=== PATIENT | female | born 1995 | race Caucasian/White ===

== ENCOUNTER 2017-03-15 10:36 | Emergency (ER) | payer OTHER ==
[2017-03-15 10:49] VITALS: BP 146/94; PULSE 112; RESP 18; TEMP 99.1
[2017-03-15] MEDS ORDERED: ACETAMINOPHEN TAB 500 MG TAB PO STA (10:58)
--- NOTE | 2017-03-15 11:13 | ED ---
General Adult HPI - General Chief complaint: Animal Bite Stated complaint: Dog Bite Time Seen by Provider: 03/15/17 10:46 Source: patient, family, EMS, RN notes reviewed Mode of arrival: EMS Limitations: no limitations - History of Present Illness Initial comments: Chief complaint history of present illness is a 21-year-old female who was walking her dog at the dog park in for depression and an aggressive dog and started biting her dog. She was trying to rescue her dog when she was bit in her left hand. The states she does not know if it was the aggressive dog or one of her own dogs bit her on the wrist. Was established that the dog that bit her dog did not have his rabies shots. The Cold Storage Worker's department responded to the scene. - Related Data Home Medications Medication Instructions Recorded Confirmed [place] Control 1 tab PO DAILY 03/15/17 03/15/17 Previous Rx's Medication Instructions Recorded Ciprofloxacin HCl [Cipro] 500 mg PO Q12HR #14 tablet 03/15/17 Clindamycin HCl 300 mg PO QID #21 cap 03/15/17 Hydrocodone/Acetaminophen [[place] 1 each PO Q6HR PRN #10 tab 03/15/17 5-325] Allergies Allergy/AdvReac Type Severity Reaction Status Date / Time amoxicillin Allergy Unknown Verified 03/15/17 10:53 Childhood Review of Systems ROS Statement: Those systems with pertinent positive or pertinent negative responses have been documented in the HPI. Review of systems. No complaints other than puncture wounds on the left hand. Patient has discomfort with opening and closing. Neurovascular status is intact. The patient is right-hand dominant. Patient's last tetanus shot was greater than 5 years ago. Patient denies any past medical problems or medications she takes her control pills patient surgeries tonsils and adenoids. Family history includes cancers of the thyroid, vagina, brain and breast. Patient had a child had an upset stomach with amoxicillin but no other reaction per father is at bedside. Patient does not smoke doesn't drink alcohol. ROS Other: All systems not noted in ROS Statement are negative. Past Medical History Past Medical History: No Reported History History of Any Multi-Drug Resistant Organisms: None Reported Past Surgical History: Adenoidectomy, Tonsillectomy Past Psychological History: No Psychological Hx Reported Smoking Status: Never smoker Past Alcohol Use History: None Reported Past Drug Use History: None Reported General Exam - General Exam Comments Initial Comments: General: The patient is awake and alert, in no distress, and does not appear acutely ill. All bite wound left hand. Vital signs temperature 90.9 pulse 112 respiratory rate 18 pulse ox on percent room air blood pressure 146/94 Musculoskeletal: Multiple extremity is normal except for 2 dog bites to the nondominant left hand and one deep abrasion on the more proximal forearm left side. Full range of motion neurovascular status intact. X-ray pending. Neurological: No complaint of any neuro deficits. Limitations: no limitations Course Vital Signs 03/15/17 10:47 Temperature 99.1 F Pulse Rate 112 H Respiratory 18 Rate Blood Pressure 146/94 O2 Sat by Pulse 100 Oximetry Procedures - Procedures Initial comment: Procedure; using sterile technique 1% Xylocaine was used to numb 2 small lacerations one on the dorsal surface of her left hand and the other on the center eminence. The wound was then numbed with 1% Xylocaine. Rinsed well with normal saline Betadine and finally normal saline again. Wound edges approximated with only one suture of a mattress style 4-0 nylon. Patient will have the sutures removed in 7 days. Or earlier should be signs of infection Patient was told if he gets red tender or infected that suture needs to be removed. She was also started on clindamycin and Cipro while in emergency room. Patient has an ALLERGY to amoxicillin. Dr. Angulo Medical Decision Making - Medical Decision Making Adelso decision-making. I contacted the animal control office. And because the coal tower operator of the dog that may have bitten this patient is not wanted, her dog will be euthanized. The testing for rabies will be sent to the state and the results will be back in 5 days. The animal control manufacturer representative told me they will contact my patient. The wound was cleaned and anesthetized one suture placed. Patient states she has now to amoxicillin. She'll be placed on clindamycin 300 4 times a day Cipro 500 twice a day for 1 week. X-ray of the left hand was done and reviewed by radiologist his impression is there is no acute fracture, dislocation evident. The joint spaces appear within normal limits. The overlying soft tissue appears unremarkable. Impression; there is no acute fracture or dislocation. As read by Dr. Jonas Disposition Clinical Impression: Dog bite, Laceration of left hand Disposition: HOME SELF-CARE Condition: Fair Instructions: Animal Bite (ED), Laceration (ED) Additional Instructions: Use cold compresses see her hand control swelling. Use ibuprofen for discomfort. Take clindamycin 300 mg 4 times daily for 7 days and Cipro 500 mg twice daily for 7 days. Call animal control on Monday if you have not heard from them concerning the health of the dog in question. If there are signs of infection such as pain, redness and discharge. Return emergency room to have the sutures removed earlier than 7 days. Prescriptions: Ciprofloxacin HCl [Cipro] 500 mg PO Q12HR #14 tablet Clindamycin HCl 300 mg PO QID #21 cap Hydrocodone/Acetaminophen [[place] 5-325] 1 each PO Q6HR PRN #10 tab PRN Reason: Pain Time of Disposition: 11:59
[2017-03-15] MEDS ORDERED: DIPH,PERTUS(ACELL)TETVAC-LF 0.5 ML VIAL IM ONE (11:19)
[2017-03-15] MEDS ORDERED: CLINDAMYCIN 150 MG CAP PO STA (11:38)
[2017-03-15] MEDS ORDERED: CIPROFLOXACIN HCL 500 MG TAB PO STA (11:39)
[2017-03-15] MEDS ORDERED: HYDROcodone/APAP 5-325MG 1 EACH TAB PO STA (11:39)
--- NOTE | 2017-03-15 11:50 | XR ---
EXAMINATION TYPE: XR hand complete LT DATE OF EXAM: 03/15/2017 11:41 AM CLINICAL HISTORY: pain TECHNIQUE: Frontal, lateral and oblique images of the left hand are obtained. COMPARISON: None. FINDINGS: There is no acute fracture/dislocation evident. The joint spaces appear within normal limi ts. The overlying soft tissue appears unremarkable. IMPRESSION: There is no acute fracture or dislocation. ICD 10 NO FRACTURE, INITIAL EVALUATION
--- NOTE | 2017-05-08 07:09 | CDI ---
Documentation Clarification OP Dear avi Angulo MD, Please do addendum to ED report that describes the length of laceration repair that has been performed in hand. Thank you, sharron wood undergraduate intern. if you have any questions,please contact assistant branch operations manager at [phone]. [facility]
== END 2017-03-15 12:10 | disposition home or self-care (01) ==
LOC: EC 10:36
DX: S61.412A Laceration without foreign body of left hand, initial encounter (principal); Z23 Encounter for immunization; Z79.3 Long term (current) use of hormonal contraceptives; Z88.0 Allergy status to penicillin; W54.0XXA Bitten by dog, initial encounter; Y93.K1 Activity, walking an animal; Y92.89 Other specified places as the place of occurrence of the external cause
CPT/HCPCS: 12001; 90471; 90715; 99283

== ENCOUNTER 2022-01-04 09:39 | Outpatient (CLI) | payer BC ==
[2022-01-04 11:52] VITALS: BP 116/55; PULSE 115; RESP 14; TEMP 97.3
--- NOTE | 2022-03-02 21:53 | P.MSEPDOC ---
Presenting Problems - Arrival Data Date of Arrival on Unit: 01/04/22 Time of Arrival on Unit: 09:50 Mode of Transport: Ambulatory - Complaint OB-Reason for Admission/Chief Complaint: Rule Out SROM Comment: pt reports contractions since 4 am Medical History - Information : 1 Para: 0 Term: 0 : 0 Abortions: Spontaneous or Elective: 0 Number of Living Children: 0 - Gestational Age Gestational Age by SEJAL (wks/days): 37 Weeks and 4 Days Review of Systems - Review of Systems Constitutional: No problems Breast: No problems ENT: No problems Cardiovascular: No problems Respiratory: No problems Gastrointestinal: No problems Genitourinary: No problems Musculoskeletal: No problems Neurological: No problems Skin: No problems Vital Signs - Temperature Temperature: 97.3 F Temperature Source: Oral - Pulse Brachial Pulse Rate: 115 Pulse Assessment Method: Automatic Cuff - Respirations Respiratory Rate: 14 Oxygen Delivery Method: Room Air - Blood Pressure Right Arm Blood Pressure: 116/55 Blood Pressure Mean: 75 Blood Pressure Source: Automatic Cuff Medical Screen Scoring - Cervical Exam Dilation (cm): 1 Effacement (%): 50 Station: -2 Membranes: Intact - Uterine Contractions Frequency From (mins): 5 Frequency To (mins): 10 Duration From (seconds): 30 Duration To (seconds): 40 Intensity: Mild Resting: Soft to palpation - Assessment - Baby A Baseline FHR: 145 Heart Rate - NICHD Category: Category I (Normal) NST: Reactive Physician Notification - Physician Notified Physician Notified Date: 01/04/22 Physician Notified Time: 11:35 Physician: Devan Dutton Order Received: Yes - Notification Comment Comment: reported to pt visit to triage, with reactive strip, irregular contraction and no cervical change Maternal Triage Index - Maternal Triage Index Presenting for scheduled procedure w/no complaint: No - Stat/Priority 1 Stat Priority 1: No - Urgent/Priority 2 Urgent Priority 2: No - Prompt/Priority 3 Prompt Priority 3: No - Non-Urgent/Priority 4 Non-Urgent Priority 4: Yes Criteria Met for Priority 4: reports contactions since 4 am Disposition - Disposition OB Disposition: Discharge to home Discharge Date: 01/04/22 Discharge Time: 11:30 I agree with the RN Medical Screening Exam: Yes Case reviewed; plan agreed upon as documented in EMR&OBIX.: Yes Diagnosis: FALSE LABOR AT OR AFTER 37 COMPLETED WEEKS OF GESTATION
== END 2022-01-04 11:30 | disposition home or self-care (01) ==
LOC: FBPOP 09:39
PROVIDERS: ATTEND Obstetrics & Gynecology Obstetrics
DX: O47.1 False labor at or after 37 completed weeks of gestation (principal); Z3A.37 37 weeks gestation of pregnancy; Z88.1 Allergy status to other antibiotic agents
CPT/HCPCS: 59025; 99213

== ENCOUNTER 2022-01-06 13:37 | Inpatient (IN) | payer BC ==
[2022-01-06] MEDS ORDERED: TERBUTALINE 1 MG/ML VIAL SQ PRN (14:16)
[2022-01-06] MEDS ORDERED: METHYLERGONOVINE 0.2 MG/ML 1 ML AMP IM PRN (14:16)
[2022-01-06] MEDS ORDERED: LIDOCAINE 1% (PF) 10 MG/ML (30 ML SDV) SQ PRN (14:16)
[2022-01-06] MEDS ORDERED: OXYTOCIN 10 UNIT/ML 1 ML VIAL IM PRN (14:16)
[2022-01-06] MEDS ORDERED: CARBOPROST TROMETHAMINE 250 MCG/ML 1 ML AMP IM PRN (14:16)
[2022-01-06] MEDS: LACTATED RINGERS 1,000 ML IV SCH ×2 (14:25→15:11)
[2022-01-06 14:34] VITALS: RESP 16
[2022-01-06 14:45] LABS: Basophils % (A) 0 %; Eosinophils # (A) 0.1 k/uL (0-0.7); Eosinophils % (A) 1 %; HCT 37.9 % (34.0-46.0); HGB 12.4 gm/dL (11.4-16.0); Hypochromasia Slight; Lymphocytes # (A) 2.3 k/uL (1.0-4.8); Lymphocytes % (A) 25 %; MCH 27.6 pg (25.0-35.0); MCHC 32.7 g/dL (31.0-37.0); MCV 84.5 fL (80.0-100.0); Mean Platelet Volume 10.8; Monocytes # (A) 0.7 k/uL (0-1.0); Monocytes % (A) 7 %; Neutrophils # (A) 5.9 k/uL (1.3-7.7); Neutrophils % (A) 65 %; Platelet Count 206 k/uL (150-450); RBC 4.49 m/uL (3.80-5.40); RDW 14.2 % (11.5-15.5); WBC 9.1 k/uL (3.8-10.6)
[2022-01-06] MEDS ORDERED: ROPIVACAINE 5MG/ML 20ML VIAL ONE (14:55)
[2022-01-06] MEDS ORDERED: fentaNYL (PF) 50 MCG/ML 5 ML AMP ONE (14:55)
[2022-01-06] MEDS ORDERED: SODIUM CHLORIDE 0.9% 100 ML BAG ONE (14:55)
--- NOTE | 2022-01-06 16:40 | P.HPOB ---
History of Present Illness H&P Date: 01/06/22 Chief Complaint: IUP @ 37 5/7 weeks, SROM This is a 26-year-old 1 para 0 at 37-5/7 weeks that presents to labor and delivery with complaints of spontaneous rupture of membranes around 12:30. Patient states it was a large gush of clear fluid. Patient has been tarun throughout the week approximately every 10-11 minutes, no cervical change was appreciated on a prior visit to triage. Patient has noted good movement. On bloodwork should a blood type of O-, rubella status immune, hepatitis B surface antigen negative, HIV negative, RPR nonreactive, group beta strep cultures negative. Review of Systems Constitutional: Denies chills, Denies fatigue, Denies fever Ears, nose, mouth and throat: Denies headache Cardiovascular: Reports leg edema Gastrointestinal: Denies constipation, Denies diarrhea, Denies nausea, Denies vomiting Genitourinary: Reports Past Medical History Past Medical History: No Reported History History of Any Multi-Drug Resistant Organisms: None Reported Past Surgical History: Adenoidectomy, Tonsillectomy Past Anesthesia/Blood Transfusion Reactions: No Reported Reaction Past Psychological History: No Psychological Hx Reported Smoking Status: Never smoker Past Alcohol Use History: None Reported Past Drug Use History: None Reported - Past Family History Mother Family Medical History: No Reported History Medications and Allergies Home Medications Medication Instructions Recorded Confirmed Type Pnv,Calcium 72/Iron/Folic Acid 1 tablet PO DAILY 01/04/22 01/06/22 History [ Plus Tablet] Sertraline HCl [Zoloft] 75 mg PO DAILY 01/04/22 01/06/22 History buPROPion [Wellbutrin] 1 tab PO DAILY 01/04/22 01/06/22 History Allergies Allergy/AdvReac Type Severity Reaction Status Date / Time amoxicillin Allergy Unknown Verified 01/06/22 13:49 Childhood Exam Osteopathic Statement: *. No significant issues noted on an osteopathic structural exam other than those noted in the History and Physical/Consult. 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 heart tones are noted to be category 1, she is tarun irregularly. Cervical exam is deferred. She was noted to be 6 cm/100/-1 on last exam after epidural per RN. Results Result Diagrams: 01/06/22 14:20 Assessment and Plan (1) 37 weeks gestation of Current Visit: Yes Status: Acute Code(s): Z3A.37 - 37 WEEKS GESTATION OF SNOMED Code(s): 91949047 (2) SROM (spontaneous rupture of membranes) Current Visit: Yes Status: Acute Code(s): MZC8519 - SNOMED Code(s): 552039999 Plan: 26-year-old 1 para 0 at 37-5/7 weeks that presents with complaints of spontaneous rupture of membranes around 12:30. Patient has been tarun irregularly throughout the week. Noted to be 2 cm in the office previously. Patient was noted to be 4 cm upon admission. Patient did desire epidural, this was placed without difficulty by the anesthesia department. Patient is declini ng Pitocin augmentation of labor despite irregular contractions.
[2022-01-06] MEDS ORDERED: OXYTOCIN 30 UNITS/500 ML NS 30 UNIT in SALINE 1 500ML.BAG IV SCH ×2 (17:45→22:15)
[2022-01-06] MEDS ORDERED: CITRIC ACID-SODIUM CITRATE 15 ML CUP PO ONE (21:00)
[2022-01-06] MEDS ORDERED: OXYTOCIN 30 UNITS/500 ML NS BAG IV ONE (21:05)
[2022-01-06] MEDS ORDERED: MIDAZOLAM 2 MG/2 ML VIAL ONE (21:05)
[2022-01-06] MEDS ORDERED: fentaNYL (PF) 50 MCG/ML 2 ML AMP ONE (21:05)
[2022-01-06] MEDS ORDERED: MORPHINE SULFATE (PF) 0.3 MG/0.3 ML SYR ONE (21:05)
[2022-01-06] MEDS ORDERED: ONDANSETRON 4 MG/2 ML VIAL ONE (21:05)
--- NOTE | 2022-01-06 21:55 | P.OP ---
Date of Procedure: 01/06/22 Preoperative Diagnosis: IUP at 37 and 5, spontaneous rupture of membranes, arrest of descent Postoperative Diagnosis: Same Anesthesia: epidural Surgeon: Soniya Topete Deblocker #1: Dali Menchaca Estimated Blood Loss (ml): 400 IV fluids (ml): 800 Urine output (ml): 50 Pathology: none sent Condition: stable Disposition: observation Indications for Procedure: 26-year-old at 37-6/7 weeks that presented to labor and delivery with complaints of spontaneous rupture of membranes around 12:30. Patient noted a large gush of clear fluid. Patient presented to the hospital was noted to be 4 cm and. Uncomfortable. Patient was admitted to labor and delivery. Patient did request epidural placement. Epidural was placed without difficulty by the anesthesia department. Patient made slow progress but eventually became complete. Patient began pushing and after an hour and a half no descent was appreciated. was noted with increased caput formation in addition. heart tones were noted to be reassuring throughout labor, pushing. Operative Findings: Viable female in occiput posterior presentation, weight of 6 pounds 14.2 ounces, Apgars of 4, 7, 8 at one, 5, 10 minutes respectively. time of 2117. Normal uterus tubes and ovaries were appreciated. Description of Procedure: Patient was taken back to the operative suite where epidural anesthesia was found be adequate. She was prepped and draped in normal sterile fashion in the dorsal supine position. A Pfannenstiel skin incision was made with the scalpel and carried through the underlying layer of fascia. The fascia was then incised in the midline and the incision was extended laterally. Superior aspect of the fascial incision was then grasped santana clamps, elevated and underlying rectus muscle was dissected off sharply. The inferior aspect the fascial incision was then grasped santana clamps, elevated and underlying rectus muscles dissected off sharply. Rectus muscles were in the midline the peritoneum was identified and entered. The bladder blade was then inserted into the pelvis. The vesicouterine peritoneum was identified and the bladder flap was created using sharp and blunt dissection. Hysterotomy incision was performed with the scalpel, meconium-stained fluid was appreciated. The infant was noted to be low in the pelvis, the delivery nurse placed her hand vaginally to push up on the head, the infant was encountered in occiput posterior presentation loose nuchal cord 1 was delivered in the usual fashion. The umbilical cord was doubl y clamped and cut was handed off to awaiting RN. Cord blood was then taken. The placenta was delivered manually and the uterus was cleared of all clots and debris. The uterus was delivered from the abdomen. The hysterotomy incision was inspected extension of the hysterotomy incision was noted on the left lateral uterine wall. The apex was grasped with an Allis clamps, the hysterotomy incision was closed with 0 Vicryl in a running locked fashion. A second imbricating suture was performed. Hemostasis was appreciated after closure. The pelvis was then copiously irrigated. The bladder was inspected and found to be intact and away from the uterine incision. The uterus was then delivered from the abdomen. The gutters were cleared of all clots and debris. Hysterotomy incision was inspected and found to be hemostatic once again. The peritoneum was then loosely reapproximated. The rectus muscles were inspected found to be hemostatic. The fascia was then closed with 0 Vicryl in a running fashion from one lateral edge the midline and the other lateral edge the midline. The subcutaneous tissue was then irrigated found to be hemostatic and closed with 3-0 Vicryl in a running fashion. The skin was then closed with 4-0 Vicryl in a subcuticular fashion. Steri-Strips and sterile dressings were applied. All counts were noted be correct 2. Patient tolerated delivery well, was taken to special care nursery for observation.
[2022-01-06] MEDS ORDERED: diphenhydrAMINE 50 MG CAP PO PRN (22:15)
[2022-01-06] MEDS ORDERED: diphenhydrAMINE 25 MG CAP PO PRN (22:15)
[2022-01-06] MEDS ORDERED: diphenhydrAMINE 50 MG/ML 1 ML VIAL IVP PRN ×2 (22:15)
[2022-01-06] MEDS ORDERED: ONDANSETRON 4 MG/2 ML VIAL IVP PRN (22:15)
[2022-01-06] MEDS ORDERED: NALOXONE 0.4 MG/ML 1 ML VIAL IV PRN (22:15)
[2022-01-06] MEDS ORDERED: ZOLPIDEM 5 MG TAB PO PRN (22:15)
[2022-01-06] MEDS ORDERED: METOCLOPRAMIDE 5 MG/ML 2 ML VIAL IVP PRN (22:15)
[2022-01-07] MEDS: ACETAMINOPHEN IV (For NPO) 1,000 MG in EMPTY BAG 1 BAG IVPB SCH ×2 (00:02→08:31)
[2022-01-07] MEDS: ACETAMINOPHEN TAB 500 MG TAB PO SCH ×4 (00:08→19:18)
[2022-01-07] MEDS: LACTATED RINGERS 1,000 ML IV SCH ×4 (01:36→08:45)
[2022-01-07] MEDS ORDERED: Rhogam IMMUNE GLOBULIN 1,500 UNIT/1 ML IM ONE (03:41)
[2022-01-07] MEDS: IBUPROFEN IV 800 MG in SODIUM CHLORIDE 0.9% 250 ML IV SCH ×3 (03:42→11:02)
[2022-01-07] MEDS: IBUPROFEN 600 MG TAB PO SCH ×5 (04:27→22:32)
[2022-01-07] MEDS ORDERED: ROPIVACAINE 100 MG, fentaNYL (PF). 200 MCG in SODIUM CHLORIDE 0.9% 76 ML EPIDURAL ONE (06:30)
[2022-01-07 06:59] LABS: Basophils % (A) 0 %; Eosinophils % (A) 0 %; HCT 32.9 % (34.0-46.0); HGB 10.7 gm/dL (11.4-16.0); Hypochromasia Slight; Lymphocytes # (A) 1.1 k/uL (1.0-4.8); Lymphocytes % (A) 9 %; MCHC 32.6 g/dL (31.0-37.0); MCV 85.9 fL (80.0-100.0); Mean Platelet Volume 10.3; Monocytes # (A) 0.5 k/uL (0-1.0); Monocytes % (A) 4 %; Neutrophils # (A) 10.8 k/uL (1.3-7.7); Neutrophils % (A) 86 %; Platelet Count 128 k/uL (150-450); RBC 3.83 m/uL (3.80-5.40); RDW 14.5 % (11.5-15.5); WBC 12.5 k/uL (3.8-10.6)
[2022-01-07] MEDS: SENNOSIDES-DOCUSATE SODIUM 1 EACH TAB PO SCH ×2 (08:32→21:00)
[2022-01-07] MEDS: SERTRALINE 25 MG TAB PO SCH (08:32)
[2022-01-07] MEDS ORDERED: buPROPion XL 300 MG TAB.ER.24H PO STA (08:35)
--- NOTE | 2022-01-07 08:51 | P.PNOBGPC ---
Subjective - Subjective Principal diagnosis: Day 1, primary Interval history: Patient did well overnight. She is ambulating and voiding without difficulty. Her pain is controlled, lochia is minimal. She is tolerating a regular diet without nausea or vomiting. Patient reports: Reports appetite normal, Reports voiding normally, Reports pain well controlled, Reports ambulating normally [place]: doing well (In the nursery on high flow oxygen) Objective - Vital Signs Latest vital signs: Vital Signs Temp Pulse Resp BP Pulse Ox 01/07/22 03:52 98.8 F 96 16 113/75 99 01/07/22 00:00 98.9 F 76 16 142/89 99 01/06/22 23:30 76 16 135/85 99 01/06/22 23:00 83 16 139/85 96 01/06/22 22:45 83 16 140/85 98 01/06/22 22:30 92 16 127/86 100 01/06/22 22:15 108 H 16 130/82 100 01/06/22 22:00 99.1 F 100 16 109/71 99 01/06/22 14:37 96.5 F L 93 16 139/93 01/06/22 14:30 96.5 F L 93 16 139/93 99 Intake and Output 01/06/22 01/07/22 01/07/22 22:59 06:59 14:59 Intake Total 800 Output Total 450 1900 Balance 350 -1900 Intake: IV 800 Output: Urine 50 1800 Uretheral ([place]) 600 Estimated Blood Loss 400 Output, Quantitative 100 Blood Loss Other: Voiding Method Indwelling Catheter Indwelling Catheter - Exam Extremities: Present: normal, edema Abdomen: Present: normal appearance Incision: Present: normal, dry, intact Uterus: Present: normal, firm - Labs Labs: Abnormal Lab Results - Last 24 Hours (Table) 01/07/22 Range/Units 06:41 WBC 12.5 H (3.8-10.6) k/uL Hgb 10.7 L (11.4-16.0) gm/dL Hct 32.9 L (34.0-46.0) % Plt Count 128 L (150-450) k/uL Neutrophils # 10.8 H (1.3-7.7) k/uL Assessment and Plan (1) 37 weeks gestation of Current Visit: Yes Status: Acute Code(s): Z3A.37 - 37 WEEKS GESTATION OF SNOMED Code(s): 53540627 (2) SROM (spontaneous rupture of membranes) Current Visit: Yes Status: Acute Code(s): HRY1158 - SNOMED Code(s): 770043704 (3) Arrest of descent, delivered, current hospitalization Current Visit: Yes Status: Acute Code(s): O62.1 - SECONDARY UTERINE INERTIA SNOMED Code(s): 23585839 (4) S/P section Current Visit: Yes Status: Acute Code(s): Z98.891 - HISTORY OF UTERINE SCAR FROM PREVIOUS SURGERY SNOMED Code(s): 857873760 Plan: 26-year-old 1 now para 1 status post primary for arrest of descent. Patient is doing well postoperatively. We will encourage increased ambulation today. remains in special care nursery on high flow oxygen, meconium-stained fluid was noted after delivery. Plan to continue routine postoperative care.
[2022-01-07] MEDS ORDERED: buPROPion 100 MG TAB PO SCH (09:00)
--- NOTE | 2022-01-07 09:01 | P.PN ---
Progress Note - Text 01/07/22 646 26-year-old female status post . Patient had an epidural catheter and received Duramorph after the procedure, she has a VAS of 4 with complaints of pruritus which should subside by the end of the day
[2022-01-07] MEDS: PRENATAL VIT-IRON-FOLIC ACID 1 EACH CAP PO SCH (10:57)
[2022-01-07] MEDS: SIMETHICONE 80 MG CHEWABLE PO PRN ×2 (14:04→21:00)
[2022-01-08] MEDS: IBUPROFEN 600 MG TAB PO SCH ×3 (05:45→23:36)
--- NOTE | 2022-01-08 07:47 | P.PN ---
Subjective Progress Note Date: 01/08/22 Principal diagnosis: Doing well postoperative day number two Positive flatus. Minimal pain. Minimal to moderate lochia rubra. No complaints Objective - Vital Signs Vital signs: Vital Signs Temp 98.0 F 01/08/22 00:00 Pulse 90 01/08/22 00:00 Resp 16 01/08/22 00:00 BP 118/64 01/08/22 00:00 Pulse Ox 100 01/08/22 00:00 Intake & Output 01/07/22 01/08/22 01/08/22 18:59 06:59 18:59 Output Total 1050 Balance -1050 Output: Urine 1050 Other: # Voids 2 2 - Constitutional General appearance: Present: average body habitus, cooperative - EENT Eyes: Present: PERRLA ENT: Present: hearing grossly normal - Neck Thyroid: bilateral: normal size - Respiratory Respiratory: bilateral: CTA - Cardiovascular Rhythm: regular - Gastrointestinal General gastrointestinal: Present: normal bowel sounds - Genitourinary Genitourinary Comment(s): Incision clean and dry, intact, Steri-Strips applied. - Integumentary Integumentary: Present: normal - Neurologic Neurologic: Present: CNII-XII intact - Musculoskeletal Musculoskeletal: Present: gait normal - Psychiatric Psychiatric: Present: A&O x's 3, appropriate affect, intact judgment & insight - Labs CBC & Chem 7: 01/07/22 06:41 Assessment and Plan Assessment: Doing well second postoperative day. Plan: Continue postoperative care. Possible discharge home tomorrow. Time with Patient: Less than 30
[2022-01-08] MEDS: SERTRALINE 25 MG TAB PO SCH (08:34)
[2022-01-08] MEDS: SENNOSIDES-DOCUSATE SODIUM 1 EACH TAB PO SCH ×2 (08:35→19:19)
[2022-01-08] MEDS: buPROPion XL 300 MG TAB.ER.24H PO SCH (08:35)
[2022-01-08] MEDS: PRENATAL VIT-IRON-FOLIC ACID 1 EACH CAP PO SCH (08:36)
[2022-01-08] MEDS: ACETAMINOPHEN TAB 500 MG TAB PO SCH ×3 (08:52→16:16)
[2022-01-09] MEDS: SENNOSIDES-DOCUSATE SODIUM 1 EACH TAB PO SCH ×2 (07:42→19:50)
[2022-01-09] MEDS: PRENATAL VIT-IRON-FOLIC ACID 1 EACH CAP PO SCH (07:43)
[2022-01-09] MEDS: SERTRALINE 25 MG TAB PO SCH (07:44)
[2022-01-09] MEDS: buPROPion XL 300 MG TAB.ER.24H PO SCH (07:44)
--- NOTE | 2022-01-09 10:16 | P.PN ---
Subjective Progress Note Date: 01/09/22 Principal diagnosis: Doing well postoperative day number two Slept well. No complaints. [place] infant is still in the nursery. Objective - Vital Signs Vital signs: Vital Signs Temp 98.0 F 01/09/22 08:00 Pulse 107 H 01/09/22 08:00 Resp 16 01/09/22 08:00 BP 136/78 01/09/22 08:00 Pulse Ox 99 01/09/22 08:00 Intake & Output 01/08/22 01/09/22 01/09/22 18:59 06:59 18:59 Other: # Voids 2 2 1 # Bowel Movements 1 - Constitutional General appearance: Present: average body habitus, cooperative - EENT Eyes: Present: PERRLA ENT: Present: hearing grossly normal - Neck Neck: Present: normal ROM - Respiratory Respiratory: bilateral: CTA - Cardiovascular Rhythm: regular - Gastrointestinal General gastrointestinal: Present: normal bowel sounds - Integumentary Integumentary Comment(s): Incision clean and dry, intact, Steri-Strips applied. Fundus firm, midline, sy mmetric, 18 week size. Integumentary: Present: normal - Neurologic Neurologic: Present: CNII-XII intact - Musculoskeletal Musculoskeletal: Present: strength equal bilaterally - Psychiatric Psychiatric: Present: A&O x's 3, appropriate affect, intact judgment & insight - Labs CBC & Chem 7: 01/07/22 06:41 Assessment and Plan Plan: Continue postoperative care. Patient wishes to stay until tomorrow as infant is not being discharged today. Time with Patient: Less than 30
[2022-01-09] MEDS: IBUPROFEN 600 MG TAB PO SCH ×3 (12:57→22:58)
[2022-01-09] MEDS: ACETAMINOPHEN TAB 500 MG TAB PO SCH (22:57)
[2022-01-10 00:56] VITALS: BP 100/59; TEMP 98.6
[2022-01-10] MEDS: ACETAMINOPHEN TAB 500 MG TAB PO SCH (04:28)
[2022-01-10 07:31] VITALS: PULSE 90
[2022-01-10] MEDS: IBUPROFEN 600 MG TAB PO SCH ×2 (09:04)
[2022-01-10] MEDS: SENNOSIDES-DOCUSATE SODIUM 1 EACH TAB PO SCH (09:04)
--- NOTE | 2022-01-10 09:13 | P.DS ---
Providers Date of admission: 01/06/22 13:53 Expected date of discharge: 01/10/22 Attending physician: Soniya Topete Primary care physician: Stated None - Discharge Diagnosis(es) (1) 37 weeks gestation of Current Visit: Yes Status: Acute (2) Arrest of descent, delivered, current hospitalization Current Visit: Yes Status: Acute (3) S/P section Current Visit: Yes Status: Acute (4) SROM (spontaneous rupture of membranes) Current Visit: Yes Status: Acute (5) S/P section Current Visit: Yes Status: Acute Hospital Course: This is a 26-year-old 1 now para 1 woman who is admitted at 37-5/7 weeks gestation with spontaneous rupture of membranes. She underwent Pitocin induction of labor as she was not in active labor on presentation. She received an epidural anesthetic. She did reach eventually complete cervical dilation. She had approximately 90 minute second stage of labor with no appreciable descent of the vertex and Formation. She was therefore taken for primary low transverse section for arrest of descent in the second stage. She underwent an uncomplicated primary low transverse section and findings at the time of surgery were a female in the occiput posterior position weighing 6 lbs. 14 oz. with Apgars of 4, 7, 8 at 1, 5 and 10 minutes. Please see the operative report for details. The was admitted into the special care nursery. The patient's postoperative course was essentially unremarkable. By postop day 1 she was ambulating and voiding without difficulty. Her diet was advanced. Her postoperative blood work was stable. By postoperative day #2 and 3 she continued to do well. She was pumping breastmilk for the in the nursery. Her pain was well-controlled with oral pain medications. By postoperative day #4 her incision appeared to be well healing, her lochia was minimal, she is breast-feeding successfully and the infant was cleared for discharge home. She was therefore discharged home with routine instructions for postoperative care and follow-up. Procedures: Primary low transverse section Patient Condition at Discharge: Good Plan - Discharge Summary New Discharge Prescriptions: New Lmm-Heuv-Cvwka Acid [-U Capsule (formulary)] 1 each PO DAILY cap Sertraline [Zoloft] 75 mg PO DAILY tab Ibuprofen [Motrin] 600 mg PO Q6H tab Sennosides-Docusate Sodium [Senokot-S] 2 each PO BID@799,1999 tab Continue Sertraline HCl [Zoloft] 75 mg PO DAILY Discontinued Pnv,Calcium 72/Iron/Folic Acid [ Plus Tablet] 1 tablet PO DAILY No Action buPROPion XL [Wellbutrin XL] 300 mg PO DAILY Discharge Medication List Sertraline HCl [Zoloft] 75 mg PO DAILY 01/04/22 [History] buPROPion XL [Wellbutrin XL] 300 mg PO DAILY 01/07/22 [History] Ibuprofen [Motrin] 600 mg PO Q6H tab 01/10/22 [Rx] Qeg-Cgia-Coxij Acid [-U Capsule (formulary)] 1 each PO DAILY cap 01/10/22 [Rx] Sennosides-Docusate Sodium [Senokot-S] 2 each PO BID@799,1999 tab 01/10/22 [Rx] Sertraline [Zoloft] 75 mg PO DAILY tab 01/10/22 [Rx] Follow up Appointment(s)/Referral(s): Soniya Topete DO [Doctor of Osteopathic Medicine] - 2 Weeks Activity/Diet/Wound Care/Special Instructions: Follow-up in 2 weeks after surgery in the office. Call the office with any concerning signs or symptoms including fever greater than 101, severe abdominal pain, heavy vaginal bleeding, signs of wound infection, increased swelling or redness of the lower extremities, signs of depression. No driving for 2 weeks after surgery. No heavy lifting or vigorous activity until reevalua he in the office. No intercourse for 6 weeks after delivery. Discharge Disposition: HOME SELF-CARE
== END 2022-01-10 10:26 | disposition home or self-care (01) | DRG 788 ==
LOC: FBPOP 13:37 → 4FBP 13:53
PROVIDERS: ADMIT Obstetrics & Gynecology Obstetrics; ATTEND Obstetrics & Gynecology Obstetrics
PROC: 10D00Z1 Extraction of Products of Conception, Low, Open Approach (ICD-10-PCS; principal; 2022-01-06 21:12)
DX: O62.1 Secondary uterine inertia (principal); Z37.0 Single live birth; Z3A.37 37 weeks gestation of pregnancy; O77.0 Labor and delivery complicated by meconium in amniotic fluid
CPT/HCPCS: 59025; 84112; 85025; 85461; 86850; 86870; 86880; 86900; 86901; 88307; 99213

== ENCOUNTER 2023-12-25 14:34 | Outpatient (CLI) | payer BC ==
[2023-12-25] MEDS: LOPERAMIDE 2 MG CAP PO STA (16:03)
[2023-12-25] MEDS: ONDANSETRON 4 MG/2 ML VIAL IVP STA (16:04)
[2023-12-25] MEDS: LACTATED RINGERS 1,000 ML IV SCH ×2 (16:04→16:34)
[2023-12-25 16:05] LABS: Appearance,Urine Cloudy (Clear); Bacteria,Urine Few /hpf; Bilirubin,Urine Negative (Negative); Blood,Urine Negative (Negative); Color,Urine Yellow; Glucose,Urine (UA) Negative (Negative); Ketones,Urine 4+ (Negative); Leukocyte Esterase,Urine Small (Negative); Mucus,Urine Many /hpf; Nitrite,Urine Negative (Negative); Protein,Urine 1+ (Negative); RBC,Urine 4 /hpf (0-5); Specific Gravity,Urine 1.033 (1.001-1.035); Squamous Epithelial Cell,Urine 6 /hpf (0-4); Urobilinogen,Urine <2.0 mg/dL (<2.0); WBC,Urine 8 /hpf (0-5)
[2023-12-25 17:51] VITALS: BP 114/79; PULSE 115; RESP 17; TEMP 96.1
--- NOTE | 2023-12-27 14:03 | P.MSEPDOC ---
Presenting Problems - Arrival Data Date of Arrival on Unit: 12/25/23 Time of Arrival on Unit: 14:34 Mode of Transport: Ambulatory - Complaint OB-Reason for Admission/Chief Complaint: Acute Nausea/Vomiting, Other Comment: pt presents to triage for diarreha and nausea for the last 48 hours, Medical History - Information : 2 Para: 1 Term: 1 : 0 Abortions: Spontaneous or Elective: 0 Number of Living Children: 1 - Gestational Age Gestational Age by SEJAL (wks/days): 33 Weeks and 4 Days Review of Systems - Review of Systems Constitutional: No problems Breast: No problems ENT: No problems Cardiovascular: No problems Respiratory: No problems Gastrointestinal: No problems Genitourinary: No problems Musculoskeletal: No problems Neurological: No problems Skin: No problems Vital Signs - Temperature Temperature: 96.1 F Temperature Source: Temporal Artery Scan - Pulse Right Brachial Pulse Rate: 115 Pulse Assessment Method: Automatic Cuff - Respirations Respiratory Rate: 17 Oxygen Delivery Method: Room Air O2 Sat by Pulse Oximetry: 97 - Blood Pressure Right Arm Blood Pressure: 114/79 Blood Pressure Mean: 90 Blood Pressure Source: Automatic Cuff Medical Screen Scoring - Cervical Exam Membranes: Intact - Uterine Contractions Intensity: Mild Resting: Soft to palpation - Assessment - Baby A Baseline FHR: 145 Heart Rate - NICHD Category: Category I (Normal) NST: Reactive Physician Notification - Physician Notified Physician Notified Date: 12/25/23 Physician Notified Time: 16:17 Physician: Soniya Topete New Order Received: Yes - Notification Comment Comment: pt given iv 2 bags of LR, zofran, and immodium, reactive nst, pt feeling better when discharged home, pt has scheduled appt next week in the office, Dr. Topete e scribed script for zofran for home use if need, instructed pt to try BRAT diet if she is feeling up to eating Maternal Triage Index - Maternal Triage Index Presenting for scheduled procedure w/no complaint: No - Stat/Priority 1 Stat Priority 1: No - Urgent/Priority 2 Urgent Priority 2: Yes Provider Notified: Soniya Topete Provider Notified Time: 15:15 Criteria Met for Priority 2: pt presents to triage for diarreha and nausea for the last 48 hours Disposition - Disposition OB Disposition: LDRP Suite, Discharge to home, Written follow up instructions reviewed Discharge Date: 12/25/23 Discharge Time: 17:15 I agree with the RN Medical Screening Exam: Yes Case reviewed; plan agreed upon as documented in EMR&OBIX.: Yes Diagnosis: RELATED CONDITIONS, UNSPECIFIED, THIRD TRIMESTER
== END 2023-12-25 17:15 | disposition home or self-care (01) ==
LOC: FBPOP 14:34
PROVIDERS: ATTEND Obstetrics & Gynecology Obstetrics
DX: O21.9 Vomiting of pregnancy, unspecified (principal); O99.613 Diseases of the digestive system complicating pregnancy, third trimester; R19.7 Diarrhea, unspecified; Z3A.33 33 weeks gestation of pregnancy; Z88.0 Allergy status to penicillin
CPT/HCPCS: 59025; 99214; 96361; 96374; 84112; 81001; J2405

== ENCOUNTER 2024-01-17 12:39 | Outpatient (CLI) | payer BC ==
[2024-01-17] MEDS: LACTATED RINGERS 1,000 ML IV SCH (13:22)
[2024-01-17 15:55] VITALS: BP 112/78; PULSE 95; RESP 16; TEMP 97.8
== END 2024-01-17 15:15 | disposition home or self-care (01) ==
LOC: FBPOP 12:39
PROVIDERS: ATTEND Obstetrics & Gynecology Obstetrics
DX: Z53.9 Procedure and treatment not carried out, unspecified reason (principal)
CPT/HCPCS: 59025; 96360; 96361; 96365

== ENCOUNTER 2024-01-24 13:02 | Outpatient (CLI) | payer BC ==
[2024-01-24 13:22] VITALS: BP 123/79; PULSE 105; RESP 14; TEMP 97.4
[2024-01-24] MEDS: LACTATED RINGERS 1,000 ML IV SCH (13:51)
== END 2024-01-24 14:34 | disposition home or self-care (01) ==
LOC: FBPOP 13:02
PROVIDERS: ATTEND Obstetrics & Gynecology Obstetrics
DX: Z53.9 Procedure and treatment not carried out, unspecified reason (principal)
CPT/HCPCS: 59025; 96360; 96365; 99214

== ENCOUNTER 2024-02-06 23:45 | Inpatient (IN) | payer BC ==
[2024-02-07] MEDS ORDERED: METHYLERGONOVINE 0.2 MG/ML 1 ML AMP IM PRN (00:11)
[2024-02-07] MEDS ORDERED: TRANEXAMIC 1,000 MG/100ML-NACL 1,000 MG in EMPTY BAG 1 BAG IV PRN (00:11)
[2024-02-07] MEDS ORDERED: LIDOCAINE 0.5% (PF) 5 MG/ML (50 ML SDV) SQ PRN (00:11)
[2024-02-07] MEDS ORDERED: miSOPROStoL 200 MCG TAB PO PRN (00:11)
[2024-02-07] MEDS ORDERED: TERBUTALINE 1 MG/ML VIAL SQ PRN (00:11)
[2024-02-07] MEDS ORDERED: OXYTOCIN 10 UNIT/ML 1 ML VIAL IM PRN (00:11)
[2024-02-07] MEDS ORDERED: CARBOPROST TROMETHAMINE 250 MCG/ML 1 ML AMP IM PRN (00:11)
[2024-02-07 01:16] LABS: Basophils % (A) 0 %; Eosinophils # (A) 0.1 k/uL (0-0.7); Eosinophils % (A) 1 %; HCT 33.3 % (34.0-46.0); HGB 10.5 gm/dL (11.4-16.0); Hypochromasia Moderate; Lymphocytes # (A) 1.8 k/uL (1.0-4.8); Lymphocytes % (A) 22 %; MCH 25.8 pg (25.0-35.0); MCHC 31.7 g/dL (31.0-37.0); MCV 81.5 fL (80.0-100.0); Mean Platelet Volume 10.9; Monocytes # (A) 0.6 k/uL (0-1.0); Monocytes % (A) 8 %; Neutrophils # (A) 5.6 k/uL (1.3-7.7); Neutrophils % (A) 68 %; Platelet Count 190 k/uL (150-450); Poikilocytosis Slight; RBC 4.08 m/uL (3.80-5.40); RDW 14.9 % (11.5-15.5); WBC 8.2 k/uL (3.8-10.6)
[2024-02-07] MEDS: NALBUPHINE 10 MG/ML (10 ML MDV) IV PRN (02:12)
[2024-02-07] MEDS: LACTATED RINGERS 1,000 ML IV SCH ×2 (02:15→16:42)
[2024-02-07] MEDS ORDERED: SODIUM CHLORIDE 0.9% 250 ML BAG ONE (03:56)
[2024-02-07] MEDS ORDERED: fentaNYL (PF) 50 MCG/ML 5 ML AMP ONE (03:56)
[2024-02-07] MEDS ORDERED: ROPIVACAINE 5 MG/ML 30 ML VIAL ONE (03:56)
[2024-02-07] MEDS: CITRIC ACID-SODIUM CITRATE 15 ML CUP PO ONE (10:00)
[2024-02-07] MEDS ORDERED: diphenhydrAMINE 50 MG/ML 1 ML VIAL ONE (10:25)
[2024-02-07] MEDS ORDERED: ONDANSETRON 4 MG/2 ML VIAL ONE (10:25)
[2024-02-07] MEDS ORDERED: NALBUPHINE 10 MG/ML (10 ML MDV) ONE (10:25)
[2024-02-07] MEDS ORDERED: OXYTOCIN 30 UNITS/500 ML NS BAG IV ONE (10:25)
[2024-02-07] MEDS ORDERED: MORPHINE SULFATE (PF) 0.3 MG/0.3 ML SYR ONE (10:25)
[2024-02-07] MEDS ORDERED: NALOXONE 0.4 MG/ML 1 ML VIAL IV PRN ×2 (11:24→12:42)
[2024-02-07] MEDS ORDERED: ZOLPIDEM 5 MG TAB PO PRN (11:24)
[2024-02-07] MEDS ORDERED: diphenhydrAMINE 50 MG CAP PO PRN (11:24)
[2024-02-07] MEDS ORDERED: diphenhydrAMINE 50 MG/ML 1 ML VIAL IVP PRN ×2 (11:24)
[2024-02-07] MEDS ORDERED: ONDANSETRON 4 MG/2 ML VIAL IVP PRN (11:24)
[2024-02-07] MEDS ORDERED: METOCLOPRAMIDE 5 MG/ML 2 ML VIAL IVP PRN (11:24)
[2024-02-07] MEDS ORDERED: diphenhydrAMINE 25 MG CAP PO PRN (11:24)
--- NOTE | 2024-02-07 11:24 | P.OP ---
Date of Procedure: 02/07/24 Preoperative Diagnosis: IUP at 39 and 6/7 weeks, failed trial of labor after , history of C- section x 1 for arrest of descent, maternal request Postoperative Diagnosis: Same Procedure(s) Performed: Repeat section Anesthesia: epidural Surgeon: Soniya Topete [facility] Nurse #1: Devan Dutton Estimated Blood Loss (ml): 810 IV fluids (ml): 1,000 Urine output (ml): 100 (Clear in the Weldon tubing for the procedure.) Pathology: other (Placenta) Condition: stable Disposition: observation Indications for Procedure: 28-year-old G2, P1 at 39-6/7 weeks that presented to labor and delivery with complaints of spontaneous rupture of membranes, meconium stained. Patient progressed to complete. Patient began pushing. After approximately an hour and a half of pushing patient requested a repeat section after no descent was noted with pushing. Patient was taken back for repeat section per her request Operative Findings: Viable male infant delivered at 1045, weight of 8 pounds 1 ounce, Apgars of 7 and 9 at 1 and 5 minutes respectively. Dense anterior wall adhesions were noted on the left-hand side of the uterus. These were taken down sharply and oversewed at the end of the procedure. Surgicel and Interceed were placed over this area. Description of Procedure: Patient was taken back to the operating suite where epidural anesthesia was found to be adequate by the anesthesia department. She was prepped and draped in the normal sterile fashion in the dorsal supine position. A Pfannenstiel skin incision was made with a scalpel and carried through the underlying layer of fascia. The fascia was incised and extended laterally. The superior aspect of the fascial incision was then grasped with Haley clamps, elevated and dissected off sharply dense scar tissue was appreciated. the inferior aspect of the fascial incision was grasped elevated and the underlying rectus muscle was dissected off sharply. A window was appreciated midline and dense anterior uterine wall adhesions were appreciated. The rectus muscles were in the midline the bladder blade was inserted and a bladder flap was created using sharp and blunt dissection. Hysterotomy incision was made with a scalpel meconium stained fluid was appreciated. The was encountered deep in the pelvis and delivered in the usual fashion. The umbilical cord was doubly clamped and cut. Cord blood was then taken. was handed off to waiting RN. The placenta was then delivered manually intact with a three-vessel cord. The uterus was unable to be delivered secondary to dense scar tissue. The hysterotomy incision was closed with 0 Vicryl in a running locked fashion. A second imbricating suture was performed. The bladder was noted to be far from the operating field. Hemostasis of the hysterotomy incision was noted. The area of scarring on the left side of the uterus was then brought together in a running locked fashion. Surgicel powder and Interceed were placed over this area after hemostasis was noted. The rectus muscles were inspected and any points of bleeding were made hemostatic with the Bovie. The fascia was then closed with 0 Vicryl in a running fashion from 1 lateral edge to the midline and the other lateral edge of the midline. The subcutaneous tissue was then irrigated and any points of bleeding were made hemostatic with the Bovie. The subcutaneous tissue was closed with 3-0 Vicryl in a running fashion. The skin was then closed with 4-0 Vicryl. Steri-Strips and sterile dressings were applied. All counts were to be correct x 2 at the end of the delivery. Patient and tolerated delivery well and are resting comfortably.
[2024-02-07] MEDS: ACETAMINOPHEN IV (For NPO) 1,000 MG in EMPTY BAG 1 BAG IVPB SCH (12:22)
[2024-02-07] MEDS ORDERED: HYDROmorphone 0.5 MG/0.5 ML SYRINGE IVP PRN (12:42)
[2024-02-07] MEDS: IBUPROFEN IV 800 MG in SODIUM CHLORIDE 0.9% 250 ML IV SCH (16:14)
[2024-02-07] MEDS: ACETAMINOPHEN TAB 500 MG TAB PO SCH (16:42)
[2024-02-07] MEDS: Rhogam IMMUNE GLOBULIN 1,500 UNIT/1 ML IM ONE (18:55)
[2024-02-07] MEDS: IBUPROFEN 600 MG TAB PO SCH (19:22)
[2024-02-07] MEDS: SENNOSIDES-DOCUSATE SODIUM 1 EACH TAB PO SCH (21:33)
[2024-02-07] MEDS: KETOROLAC 15 MG/ML 1 ML VIAL IVP PRN (21:48)
--- NOTE | 2024-02-08 06:25 | P.PN ---
Progress Note - Text Progress Note Date: 02/08/24 S/P C/S with Duramorph. POD #1. Pain control is adequate with suplemental Oxycodone PO. No anesthesia related complications.
[2024-02-08 07:20] LABS: Basophils % (A) 0 %; Eosinophils % (A) 0 %; HCT 25.4 % (34.0-46.0); Hypochromasia Moderate; Lymphocytes # (A) 0.9 k/uL (1.0-4.8); Lymphocytes % (A) 12 %; MCH 25.7 pg (25.0-35.0); MCHC 31.2 g/dL (31.0-37.0); MCV 82.4 fL (80.0-100.0); Mean Platelet Volume 9.9; Monocytes # (A) 0.4 k/uL (0-1.0); Monocytes % (A) 6 %; Neutrophils % (A) 81 %; Platelet Count 124 k/uL (150-450); RBC 3.09 m/uL (3.80-5.40); RDW 15.3 % (11.5-15.5); WBC 7.5 k/uL (3.8-10.6)
[2024-02-08 07:25] LABS: HGB 7.9 gm/dL (11.4-16.0)
[2024-02-08] MEDS: buPROPion XL 300 MG TAB.ER.24H PO SCH (07:57)
[2024-02-08] MEDS: ESCITALOPRAM 10 MG TAB PO SCH (07:57)
[2024-02-08] MEDS: PRENATAL VIT-IRON-FOLIC ACID 1 EACH TABLET PO SCH (07:57)
[2024-02-08] MEDS: SIMETHICONE 80 MG CHEWABLE PO PRN (19:13)
--- NOTE | 2024-02-09 09:09 | P.PNOBGPC ---
Subjective - Subjective Principal diagnosis: Postop day 1, late entry Interval history: Patient did well after her . Pain is moderately well-controlled with oral medications. She is ambulating and voiding without difficulty. Lochia is noted to be minimal to moderate. She is breast-feeding without difficulty. Patient reports: Reports appetite normal, Reports voiding normally, Reports ambulating normally [place]: doing well, nursing well Objective - Vital Signs Latest vital signs: Vital Signs Temp Pulse Resp BP Pulse Ox 02/09/24 00:00 98.4 F 96 18 101/66 100 02/08/24 19:59 98.8 F 106 H 16 103/68 98 02/08/24 15:33 98.3 F 80 16 107/72 98 02/08/24 12:00 97.5 F L 84 16 110/71 98 Intake and Output 02/08/24 02/09/24 02/09/24 22:59 06:59 14:59 Intake Total 200 Balance 200 Intake: Oral 200 Other: # Voids 1 1 - Exam Extremities: Present: normal, edema Abdomen: Present: normal appearance, soft Incision: Present: normal, dry, intact Assessment and Plan (1) Term Current Visit: Yes Status: Acute Code(s): Z34.90 - ENCNTR FOR SUPRVSN OF NORMAL , UNSP, UNSP TRIMESTER SNOMED Code(s): 65727942 (2) Thick meconium stained amniotic fluid Current Visit: Yes Status: Acute Code(s): P96.83 - MECONIUM STAINING SNOMED Code(s): 019300698 (3) History of section Narrative/Plan: Failed trial of labor after Current Visit: Yes Status: Acute Code(s): Z98.891 - HISTORY OF UTERINE SCAR FROM PREVIOUS SURGERY SNOMED Code(s): 067230848 (4) SROM (spontaneous rupture of membranes) Current Visit: No Status: Acute Code(s): BPV8387 - SNOMED Code(s): 298094048 Plan: 28-year-old G2 now P2 status post repeat section after failed trial of labor after . Patient is overall doing well. She is ambulating and voiding without difficulty. Pain is moderately well-controlled. Will encourage increased ambulation and use of abdominal binder. Anticipate discharge home tomorrow 02/08.
--- NOTE | 2024-02-09 09:12 | P.DS ---
Providers Date of admission: 02/06/24 23:53 Expected date of discharge: 02/09/24 Attending physician: Soniya Topete Primary care physician: Stated None - Discharge Diagnosis(es) (1) Term Current Visit: Yes Status: Acute (2) Thick meconium stained amniotic fluid Current Visit: Yes Status: Acute (3) History of section Current Visit: Yes Status: Acute (4) SROM (spontaneous rupture of membranes) Current Visit: No Status: Acute Hospital Course: 28-year-old G2 now P2 that presented to labor and delivery on 02/05 with complaints of spontaneous rupture of membranes, labor. Patient desires trial of labor just . Patient was admitted and made good progress through the night noted to be completely dilated around 6 AM. Patient began pushing after epidural was decreased. After approximately 1-1/2 hours of pushing patient had no noted descent of the head and requested a repeat section. Patient was taken back to the operating suite where repeat section was completed without difficulty. Extensive anterior abdominal wall adhesions were appreciated. Interceed was placed over its adhesion site. Patient had a delivery of a viable male at 1045 on 02/06, weight of 8 pounds 1 ounce, Apgars of 7 and 9 at 1 and 5 minutes respectively. Patient's course has been uneventful. On this postoperative day #2 she is ambulating and voiding without difficulty. She is tolerating a regular diet without nausea or vomiting. She states her pain is well-controlled. She would like discharge home. Patient Condition at Discharge: Good Plan - Discharge Summary New Discharge Prescriptions: No Action [id number]-[id number] Acid [-U Capsule (formulary)] 1 each PO DAILY cap Escitalopram [Lexapro] 10 mg PO DAILY buPROPion XL [Wellbutrin XL] 300 mg PO DAILY Discharge Medication List buPROPion XL [Wellbutrin XL] 300 mg PO DAILY 01/07/22 [History] Zwv-Quuo-Swant Acid [-U Capsule (formulary)] 1 each PO DAILY cap 01/10/22 [Rx] Escitalopram [Lexapro] 10 mg PO DAILY 12/25/23 [History] Follow up Appointment(s)/Referral(s): Soniya Topete DO [Doctor of Osteopathic Medicine] - 2 Weeks Patient Instructions/Handouts: (DC), (GEN) Activity/Diet/Wound Care/Special Instructions: No intercourse, tampons or douching. No heavy lifting greater than a gallon of milk. No driving for two weeks. Call with any fever, shakes or chills, with any pain not alleviated by over the counter meds, or with any quesions or concerns. Discharge Disposition: HOME SELF-CARE
[2024-02-09 10:44] VITALS: BP 103/61; PULSE 103; RESP 17; TEMP 97.8
--- NOTE | 2024-02-13 08:16 | P.HPOB ---
History of Present Illness H&P Date: 02/07/24 Chief Complaint: IUP @ 40 0/7 weeks, active labor, TOLAC This is a 28yo at 40 0/7 weeks that presented last night with complaints of ROM, and contractions. She had noted meconium stained fluid on exam in triage. She has a prior h/o LTCS for arrest of descent after no descent of the head after 2 hours of pushing, was 6-10 OP presentation. She is very desirous of a with this . She has hired a sugar reprocess operator head to assist with this delivery. She has had routine care which has been uncomplicated. On blood work this patient has a blood type of Review of Systems Constitutional: Denies chills, Denies fatigue, Denies fever Ears, nose, mouth and throat: Denies headache Cardiovascular: Reports leg edema Respiratory: Denies dyspnea Gastrointestinal: Denies nausea, Denies vomiting Genitourinary: Reports Past Medical History Past Medical History: No Reported History History of Any Multi-Drug Resistant Organisms: None Reported Past Surgical History: Adenoidectomy, Tonsillectomy Past Anesthesia/Blood Transfusion Reactions: No Reported Reaction Past Psychological History: No Psychological Hx Reported Smoking Status: Never smoker Past Alcohol Use History: None Reported Past Drug Use History: None Reported - Past Family History Mother Family Medical History: No Reported History Medications and Allergies Home Medications Medication Instructions Recorded Confirmed Type buPROPion XL [Wellbutrin XL] 300 mg PO DAILY 01/07/22 02/06/24 History [id number] Acid 1 each PO DAILY cap 01/10/22 02/06/24 Rx [-U Capsule (formulary)] Escitalopram [Lexapro] 10 mg PO DAILY 12/25/23 02/06/24 History Allergies Allergy/AdvReac Type Severity Reaction Status Date / Time amoxicillin Allergy Mild Unknown Verified 02/06/24 23:47 Childhood Exam Osteopathic Statement: *. No significant issues noted on an osteopathic structural exam other than those noted in the History and Physical/Consult. Vital Signs Temp Pulse Resp BP Pulse Ox 02/07/24 00:11 97.1 F L 102 H 16 124/78 97 02/06/24 23:46 98.1 F 16 123/90 Intake and Output 02/06/24 02/07/24 02/07/24 22:59 06:59 14:59 Other: Weight 86.183 kg Upon presentation and patient is comfortable with an epidural, patient was recently checked and is declining cervical exam at this time, per RN she is completely dilated at a 0 station. heart tones are noted to be category 1, she is tarun every 1 to 3 minutes. Results Result Diagrams: 02/07/24 00:20 Abnormal Lab Results - Last 24 Hours (Table) 02/07/24 Range/Units 00:20 Hgb 10.5 L (11.4-16.0) gm/dL Hct 33.3 L (34.0-46.0) % Assessment and Plan (1) Term Current Visit: Yes Status: Acute Code(s): Z34.90 - ENCNTR FOR SUPRVSN OF NORMAL , UNSP, UNSP TRIMESTER SNOMED Code(s): 97056539 (2) Thick meconium stained amniotic fluid Current Visit: Yes Status: Acute Code(s): P96.83 - MECONIUM STAINING SNOMED Code(s): 030191089 (3) History of section Narrative/Plan: Desires trial of labor after , risks are reviewed patient states understanding and is very desirous of a trial of labor Current Visit: Yes Status: Acute Code(s): Z98.891 - HISTORY OF UTERINE SCAR FROM PREVIOUS SURGERY SNOMED Code(s): 668471119 (4) SROM (spontaneous rupture of membranes) Current Visit: No Status: Acute Code(s): QNS6488 - SNOMED Code(s): 496717138 Plan: 28-year-old G2, P1 at 40-0/7 weeks presents to labor and delivery with complaints of spontaneous rupture of membranes around 1130. Patient had noted meconium stained fluid upon presentation to triage. Patient was admitted. Patient desired epidural which was placed without difficulty by the anesthesia department. Patient has progressed to complete, refusing cervical exams and is not wanting to push at this point. Will continue close observation of heart tones and begin pushing when she is ready. Her sugar reprocess operator head remains at the bedside
== END 2024-02-09 14:45 | disposition home or self-care (01) | DRG 788 ==
LOC: FBPOP 23:45 → 4FBP 23:53
PROVIDERS: ADMIT Obstetrics & Gynecology; ATTEND Obstetrics & Gynecology Obstetrics
PROC: 3E0234Z Introduction of Serum, Toxoid and Vaccine into Muscle, Percutaneous Approach (ICD-10-PCS; 2024-02-07)
PROC: 10D00Z1 Extraction of Products of Conception, Low, Open Approach (ICD-10-PCS; principal; 2024-02-07 10:09)
DX: O66.41 Failed attempted vaginal birth after previous cesarean delivery (principal); K66.0 Peritoneal adhesions (postprocedural) (postinfection); O77.0 Labor and delivery complicated by meconium in amniotic fluid; Z28.310 Unvaccinated for COVID-19; O62.1 Secondary uterine inertia; O34.211 Maternal care for low transverse scar from previous cesarean delivery; O99.62 Diseases of the digestive system complicating childbirth; O26.893 Other specified pregnancy related conditions, third trimester; Z67.41 Type O blood, Rh negative; Z3A.39 39 weeks gestation of pregnancy; Z37.0 Single live birth
CPT/HCPCS: 85025; 85461; 86850; 86900; 86901; 88307; 99213